=== PATIENT | male | born 1995 | race Caucasian/White ===

== ENCOUNTER 2024-07-01 13:11 | Outpatient (CLI) | payer OTHER, SELFPAY | END 2024-07-01 13:12 | disposition home or self-care (01) | LOC: LKVREF 13:14 | PROVIDERS: PCP Family Medicine; Visit Provider Family Medicine | DX: G40.909 Epilepsy, unspecified, not intractable, without status epilepticus (principal); R10.9 Unspecified abdominal pain; Z13.6 Encounter for screening for cardiovascular disorders | CPT/HCPCS: 80053; 80061 ==